=== PATIENT | female | born 1960 | race Caucasian/White ===

== ENCOUNTER → 2018-12-22 10:38 | Outpatient (CLI) | payer OTHER, SELFPAY ==
--- NOTE | 2018-12-22 10:40 | US_ITS ---
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 Left ovary measures 2 x 2 cm and has an unremarkable appearance. Right ovary has been removed. No cul-de-sac fluid apparent. IMPRESSION: Prior hysterectomy and right oophorectomy, no acute finding Dictated by: Yoav Thomas MD 12/22/2018 14:34 Electronically signed by Yoav Thomas MD in [facility] 12/22/2018 14:34
== END ==
PROVIDERS: PCP Internal Medicine Adolescent Medicine; Visit Provider Nurse Practitioner Obstetrics & Gynecology
DX: R10.2 Pelvic and perineal pain (principal)
CPT/HCPCS: 76830

== ENCOUNTER → 2019-01-14 09:54 | Outpatient (CLI) | payer BC, SELFPAY ==
--- NOTE | 2019-01-14 09:58 | MM_ITS ---
PROCEDURE: MM DIG SCREENING MAMM BI W/CAD CLINICAL INDICATION: Routine Screening Mammogram There is no personal or family history of breast cancer COMPARISON: DIGMAMMS MAMMOGRAM SCREEN-ROOFER GYPSUM N/C from 05/09/2008 DMSB DIGITAL MAMM-SCREEN BILATERAL from 02/18/2010 DMSB DIGITAL MAMM-SCREEN BILATERAL from 08/12/2011 TECHNIQUE: Standard CC and MLO images were obtained. R2 CAD reviewed. FINDINGS: Moderate somewhat heterogenic fibroglandular densities are seen in the central portions of both breasts. There is new dominant nodular densities in both breasts which are likely cysts but recommend follow-up ultrasound for additional evaluation. In addition there is increased glandular tissue in the outer quadrant of the left breast best appreciated on the CC view. In addition to ultrasound I would recommend the patient have spot compression views of the deep central portions of both breasts for better evaluation. IMPRESSION: Moderate heterogenic breast density with new nodular lesions in both breast and increased asymmetric glandular tissue outer quadrant left breast BI-RAD Category: 0 Need Additional Imaging Evaluation FOLLOW-UP: IMM Immediate Follow-up Recommended (A letter has been sent to the patient regarding results of the study.) Dictated by: Dr. Rome Luna MD 01/16/2019 10:[address] Rome Luna MD in [facility] 01/16/2019 10:20
== END ==
PROVIDERS: PCP Internal Medicine Adolescent Medicine; Visit Provider Nurse Practitioner Obstetrics & Gynecology
DX: Z12.31 Encounter for screening mammogram for malignant neoplasm of breast (principal)
CPT/HCPCS: 77067

== ENCOUNTER → 2019-02-08 12:36 | Outpatient (CLI) | payer BC, SELFPAY ==
--- NOTE | 2019-02-08 12:36 | US_ITS ---
PROCEDURE: MM DIG MAMM BI DX W/CAD CLINICAL INDICATION: Dx Mamm Bilateral- Abnormal Mammogram COMPARISON: DMSB DIGITAL MAMM-SCREEN BILATERAL from 02/18/2010 DMSB DIGITAL MAMM-SCREEN BILATERAL from 08/12/2011 MM DIG SCREENING MAMM BI W/CAD from 01/14/2019 US BREAST LT COMPLETE from 02/08/2019 US BREAST RT COMPLETE from 02/08/2019 TECHNIQUE: Bilateral spot compression views along with bilateral breast ultrasound FINDINGS: Average fibroglandular tissue. Right breast: New nodule 18 x 14 mm in the central aspect of the right breast once again confirm by spot compression central asymmetric density is also noted at approximately 10 mm. This is felt to be superior view. Other a areas of asymmetric density probably related to fibroglandular tissue. Right breast ultrasound: 17 x 6 mm by 14 mm cyst is present at 12 o'clock corresponding to the nodule noted on the mammogram. In addition, there is a 7 mm cyst at 10 o'clock which may correspond to additional area of asymmetric density Left mammogram: 2 cm opacity is noted in the mid aspect of the left breast which is not well circumscribed mammographically in the deep medial aspect of the left breast. There are additional nodular opacities also noted 1 centrally at 12 mm with an additional area at 13 mm. Left breast ultrasound: Multiple cysts are present including a 4 mm cyst at 12 o'clock, 6 mm cyst at 3 o'clock, 22 x 20 x 9 mm cyst at 10 o'clock. 8 mm cyst at 10 o'clock. No solid lesions evident. IMPRESSION: Bilateral breast nodules are present and are felt to most correspond to a cyst on the ultrasound. Six-month mammographic and sonographic follow-up recommended BI-RAD Category: 3 Probably Benign Finding Short Term Follow-up FOLLOW-UP: 6M 6Month Follow-up (A letter has been sent to the patient regarding results of the study.) Dictated by: Yoav Thomas MD 02/10/2019 12:58 Electronically signed by Yoav Thomas MD in [facility] 02/10/2019 12:58
== END ==
PROVIDERS: PCP Internal Medicine Adolescent Medicine; Visit Provider Nurse Practitioner Obstetrics & Gynecology
DX: R92.8 Other abnormal and inconclusive findings on diagnostic imaging of breast (principal)
CPT/HCPCS: 76641; 77066

== ENCOUNTER → 2019-08-05 13:12 | Outpatient (CLI) | payer BC, SELFPAY ==
[2019-08-05 13:44] LABS: Basophils # 0.1 K/mm3 (0-0.2); Basophils % 0.8 % (0.1-2.0); Eosinophils # 0.2 K/mm3 (0.0-0.4); Eosinophils % 1.9 % (0.1-12.0); Hematocrit 45.8 % (37.0-47.0); Lymphocytes # 2.9 K/mm3 (0.7-4.5); Mean Corpuscular HGB Conc 34.9 g/dL (31.8-35.4); Mean Corpuscular Hemoglobin 31.9 pg (27.0-31.2); Mean Corpuscular Volume 91.4 fl (81-99); Mean Platelet Volume 8.8 fl (7.4-10.4); Monocytes # 0.5 K/mm3 (0.1-1.0); Monocytes % 4.6 % (1.7-9.3); Neutrophils # 7.2 K/mm3 (1.8-7.8); Neutrophils % 65.8 % (37.0-80.0); Platelet Count 166 K/mm3 (142-424); Red Blood Count 5.01 M/mm3 (4.20-5.40); Red Cell Distribution Width 13.2 % (11.5-17.5); White Blood Count 10.9 K/mm3 (4.8-10.8)
[2019-08-05 14:41] LABS: Hemoglobin A1C 9.6 % (4.0-6.0)
[2019-08-05 14:56] LABS: Alanine Aminotransferase 66 U/L (12-78); Albumin Level 4.4 g/dl (3.5-5.0); Albumin/Globulin Ratio 1.5 (1.1-1.8); Alkaline Phosphatase 165 U/L (38-126); Anion Gap 13.1 mEq/L (5-15); Aspartate Amino Transferase 61 U/L (14-36); Bilirubin,Total 0.7 mg/dl (0.2-1.3); Blood Urea Nitrogen 19 mg/dl (7-17); Calcium 10.4 mg/dl (8.4-10.2); Carbon Dioxide 31 mmol/L (22.0-30.0); Chloride 98 mmol/L (98-107); Chol/HDL Ratio 4.1 (1-3.5); Cholesterol 228 mg/dl (140-200); Estimated Glomerular Filt Rate 57 ml/min (>60); GFR (African American) 69 ML/MIN (>60); Glucose 290 mg/dl (74-100); HDL Cholesterol 56 mg/dl (40-60); Potassium 4.1 mmoL/L (3.5-5.1); Sodium 138 mmol/L (136-145); Total Protein,Serum 7.4 g/dl (6.3-8.2); Triglycerides 334 mg/dl (30-150); VLDL Cholesterol 67 mg/dL (0-40)
[2019-08-05 15:07] LABS: Direct LDL Cholesterol 146.58 mg/dL (100-129)
== END ==
PROVIDERS: Visit Provider Internal Medicine Adolescent Medicine
DX: I16.0 Hypertensive urgency (principal); R73.09 Other abnormal glucose
CPT/HCPCS: 36415; 80053; 80061; 83036; 85025

== ENCOUNTER → 2019-08-12 07:38 | Outpatient (CLI) | payer BC, SELFPAY ==
--- NOTE | 2019-08-12 | CA_ITS ---
APPROVED REPORT Telecom Analyst: Tatyana Dumont RVT Study Quality: Good Indications: Uncontrolled HTN Risk Factors Hypertension Hyperlipidemia Diabetes Renal Artery Doppler Proximal (R) 63.6/ cm/sec Mid (R) 72.1/ cm/sec Distal (R) 58.2/ cm/sec Renal Aorta Ratio (R) 0.83 Segmental A. (R) 60.1/18.2 cm/sec RI: 0.69 Segmental A. Sup (R) 51.5/21.5 cm/sec Segmental A. Mid (R) 51.5/18.2 cm/sec Segmental A. Inf (R) 60.1/18.2 cm/sec Proximal (L) 93.7/ cm/sec Mid (L) 72.6/ cm/sec Distal (L) 54.3/ cm/sec Renal Aorta Ratio (L) 1.08 Segmental A. (L) 46.1/15.1 cm/sec RI: 0.67 Segmental A. Sup (L) 46.1/15.1 cm/sec Segmental A. Mid (L) 31.0/13.1 cm/sec Segmental A. Inf (L) 26.8/6.9 cm/sec Renal Measurements Kidney Size (R) 11.5x6.4 cm Cortical Thickness (R) 1.4 cm Kidney Size (L) 12.7x8.1 cm Cortical Thickness (L) 2.0 cm Findings Study suggests no evidence of bilateral renal artery stenosis. Conclusion Study suggests no evidence of bilateral renal artery stenosis. Electronically signed by : Yoav Thomas MD 08/12/2019 17:05:25
== END ==
PROVIDERS: PCP Internal Medicine Adolescent Medicine; Visit Provider Internal Medicine Adolescent Medicine
DX: I10 Essential (primary) hypertension (principal)
CPT/HCPCS: 93306; 93976

== ENCOUNTER → 2019-08-29 10:57 | Outpatient (CLI) | payer BC, SELFPAY ==
--- NOTE | 2019-08-29 11:14 | XR_ITS ---
PROCEDURE: XR CERVICAL SPINE 5V CLINICAL INDICATION: CERVICAL NECK PAIN W/ EVIDENCE OF DISC DISEASE Right arm numbness and tingling COMPARISON: No exams were available for comparison FINDINGS: Normal alignment. Degenerative disc disease is present from C2-T1 worse at C5-C6 and C6-C7. There is mild foraminal narrowing on the right at C5-C6 and on the left at C3-C4 C5-C6 and C6-C7. Facet hypertrophic/arthritic changes are present from C3-C7. No fracture or dislocation. No lytic or blastic change IMPRESSION: Cervical spondylosis as described above Dictated by: Yoav Thomas MD 08/29/2019 12:30 Electronically signed by Yoav Thomas MD in [facility] 08/29/2019 12:30
== END ==
PROVIDERS: PCP Internal Medicine Adolescent Medicine; Visit Provider Internal Medicine Adolescent Medicine
DX: M50.90 Cervical disc disorder, unspecified, unspecified cervical region (principal)
CPT/HCPCS: 72050

== ENCOUNTER 2019-10-20 16:00 | Outpatient (RCR) | payer BC, SELFPAY ==
--- NOTE | 2019-09-19 15:29 | HMH.PTOPEV ---
PT Outpatient Evaluation Rehab PT Outpatient Evaluation Start: 09/19/19 14:15 Freq: Status: Active Protocol: Document 09/19/19 15:15 PHOBRIAN (Rec: 09/19/19 15:29 PHORNE [id number]) Electronically Signed By Fran Caal, PT 09/19/19 15:15 Outpatient Therapy Subjective History Subjective History Pt is 59 yowf who presents with 1-2 mo hx of R side neclk pain, R UE numbness, and R hand weakness. She reports insidious onset of symptoms. She reports difficulty holding or lifting objects with the R hand, I dropped a plate of food the other night. She reports hx of DM-II with neuropathy, HTN, HL, mitral valve prolapse, OA, severe fx of R forearm bones with ORIF ~ 25 yrs ago. Chief Complaint Pain,Spasms,Gives out/Unstable ,Weakness,Decreased Tableau Report Developer Strength Symptom Type Ache,Sharp,Numbness Symptoms Aggravated By Physical Activity Prior Functional Limitations None Current Functional Limitations Lifting,Housework,Recreation Activity Symptom Description Constant but Variable Level of pain today (0-10) 7 Pain scale - at its worst (0-10) 10 Cervical Eval Palpation Cervical Muscles R Cervical Paraspinal,R Upper Trapezius Cervical/Thoracic Palpation Findings Tenderness,Spasm Flexibility Deficits Upper Trapezius Muscle Length (L) Mild Tightness,(R) Moderate Tightness Levaetor Scapulae Muscle Length (L) Mild Tightness,(R) Moderate Tightness Scalene Group Muscle Length (L) Mild Tightness,(R) Moderate Tightness Passive Joint Mobility Cervical PIVM Dec: R C2/3 L C2/3 R C3/4 L C3/4 R C4/5 L C4/5 R C5/6 L C5/6 R C6/7 L C6/7 R C7/T1 L C7/T1 WNL: R OA L OA R AA L AA ISIS
== END 2019-10-20 16:37 | disposition home or self-care (01) ==
LOC: PT 16:00
PROVIDERS: PCP Internal Medicine Adolescent Medicine; Visit Provider Internal Medicine Adolescent Medicine
DX: M50.90 Cervical disc disorder, unspecified, unspecified cervical region (principal)
CPT/HCPCS: 97010; 97012; 97014; 97035; 97110; 97140; 97163; G0283

== ENCOUNTER 2019-10-28 15:15 | Emergency (ER) | payer BC, SELFPAY ==
[2019-10-28 15:16] VITALS: BP 192/118; PULSE 106; RESP 18; TEMP 36.8; O2SAT 100; BMI 35.5
--- NOTE | 2019-10-28 15:30 | HMH.EDGENADL ---
ED Disposition Clinical Impression: PRES (posterior reversible encephalopathy syndrome), Malignant hypertension, Hyperglycemia Disposition: Xfer Short-Term Hosp Condition on Discharge: Fair Referrals: Kevin Edwards MD [Primary Care Provider] - - Critical Care Critical Care Time: Yes Attestation: On 10/28/19, the high probability of a clinically significant, sudden or life threatening deterioration of the following system(s) required my full and direct attention, intervention and personal management. The time I documented below is in addition to time spent performing reported procedures but includes the following listed in this critical care notation. Total Critical Care Time: 30 Vital system(s) involved:: Central Nervous System, Metabolic Failure My critical care processes included: Assessment & monitoring of V/S, Initial and Re-exams, Data Review/Interpretation, Coordinating Care, Medication Orders and management Medical Decision Making - Medical Records Medical records reviewed: Yes: I reviewed the patient's medical records. - Brandan Inquiry Pt receiving controlled substance: No Vital Signs: 10/28/19 15:16 Temperature 98.3 F Temperature Source Oral Pulse Rate [Left Radial] 106 H Respiratory Rate 18 Blood Pressure [Right Arm] 192/118 H Blood Pressure Mean [Right Arm] 142 Blood Pressure Source [Right Arm] Automatic Cuff Blood Pressure Position [Right Arm] Sitting 02 Sat by Pulse Oximetry 100 Oxygen Delivery Method Room Air - Lab Data Lab results reviewed: Yes: I reviewed the patient's lab results. Lab Results 10/28/19 15:30: WBC 8.5, RBC 4.97, Hgb 16.0, Hct 45.1, MCV 90.8, MCH 32.2 H, MCHC 35.4, RDW 13.2, Plt Count 170, MPV 9.0, Neut % (Auto) 64.5, Lymph % (Auto) 23.7, Meigs % (Auto) 8.1, Eos % (Auto) 2.9, Baso % (Auto) 0.8, Neut # (Auto) 5.5, Lymph # (Auto) 2.0, Meigs # (Auto) 0.7, Eos # (Auto) 0.3, Baso # (Auto) 0.1 10/28/19 15:30: Sodium 139, Potassium 3.9, Chloride 105, Carbon Dioxide 21 L, Anion Gap 16.9 H, BUN 23 H, Creatinine 1.00, Estimated Creat Clear 91, Estimated GFR 57 L, Est GFR ( Amer) 69, Glucose 275 H, Calcium 10.2, Total Bilirubin 0.5, AST 89 H, ALT 118 H, Alkaline Phosphatase 117, Total Protein 7.5, Albumin 4.1, Globulin 3.4 H, Albumin/Globulin Ratio 1.2 10/28/19 17:10: Lactate 2.1 Result diagrams: 10/28/19 15:30 10/28/19 15:30 Orders (Tests/Meds): ED MEDICATIONS Generic Name Dose Route Start Last Admin Trade Name Freq PRN Reason Stop Dose Admin Sodium Chloride 1,000 mls @ 999 mls/hr 10/28/19 16:45 10/28/19 16:44 Sod Chlor 0.9% 1000ml Bag IV 10/28/19 17:45 999 mls/hr .Q1H1M RICHAR Administration Nitroglycerin 0.4 mg 10/28/19 17:13 10/28/19 17:15 Nitrostat 0.4mg Sl Tablet SL 11/27/19 17:12 0.4 mg Q5MINP PRN Administration Chest Pain Discontinued Medications Generic Name Dose Route Start Last Admin Trade Name Freq PRN Reason Stop Dose Admin Hydralazine HCl 10 mg 10/28/19 15:39 10/28/19 15:54 Apresoline 20mg/Ml 1ml Vial IV 10/28/19 15:40 10 mg ONCE ONE Administration Hydralazine HCl 10 mg 10/28/19 16:59 10/28/19 17:10 Apresoline 20mg/Ml 1ml Vial IV 10/28/19 17:00 10 mg ONCE ONE Administration Ioversol 100 ml 10/28/19 16:23 10/28/19 16:24 Rad-Optiray 350 100ml Vial IV 10/28/19 16:24 100 ml ONCE ONE Administration Protocol Ioversol 70 ml 10/28/19 16:24 10/28/19 16:24 Rad-Optiray 350 100ml Vial IV 10/28/19 16:25 70 ml ONCE ONE Administration Protocol Ondansetron HCl 4 mg 10/28/19 16:44 10/28/19 16:50 Zofran 4mg/2ml Vial IV 10/28/19 16:45 4 mg ONCE ONE Administration Sodium Chloride 50 ml 10/28/19 16:23 10/28/19 16:24 Rad-Ns 50ml Vial IV 10/28/19 16:24 50 ml ONCE ONE Administration Sodium Chloride 10 ml 10/28/19 16:23 10/28/19 16:24 Rad-Saline Flush 10ml Syringe IV 10/28/19 16:24 10 ml ONCE ONE Administration ORDERS Category Date Time Status CT ab
--- NOTE | 2019-10-28 15:39 | CT_ITS ---
PROCEDURE: CT ABDOMEN PELVIS W CON CLINICAL INDICATION: dizziness Hypertension and dizziness COMPARISON: CR KUB KUB (SINGLE VIEW) from 05/27/2016 CR LS5 LUMBAR SPINE 5 VIEWS from 05/27/2016 TECHNIQUE: IV Contrast: 75ML OPTIRAY 350 Oral Contrast None Axial images obtained with sagittal and coronal reformats. All CT scans at the facility use one or more dose reduction, viz: automated exposure control, ma/kV adjustment per patient size (including targeted exams where dose is matched to indication, i.e. head), or iterative reconstruction technique. FINDINGS: There has been a prior cholecystectomy. Mild fatty liver infiltration. Small hiatal hernia. There is mild biliary ectasia which could be response to the previous cholecystectomy. There is some heterogeneous density of the spleen possibly due to flow phenomenon. Follow-up may confirm. The adrenal glands and pancreas and kidneys have an unremarkable appearance. No intestinal obstruction or free air. No evidence of appendicitis. There is a mild amount of retained colonic feces in the rectosigmoid region. There has been a prior hysterectomy. No pelvic mass or abnormal fluid collection. There are degenerative changes of the lumbar spine with mild chronic wedging L2 with mild kyphosis at L1-L2. There is a defect within the right ilium laterally fairly well-circumscribed etiology indeterminate. Stability may be confirmed with follow-up. IMPRESSION: 1. No acute finding. 2. Small hiatal hernia. 3. Other nonacute findings as described above Dictated by: Yoav Thomas MD 10/29/2019 08:22 Yoav Thomas MD in [facility] 10/29/2019 08:22
--- NOTE | 2019-10-28 15:39 | CT_ITS ---
PROCEDURE: CT HEAD/BRAIN WO CON CLINICAL INDICATION: dizziness COMPARISON: CT HDWO CT HEAD W/O CONTRAST from 05/15/2013 TECHNIQUE: Axial images obtained. All CT scans at the facility use one or more dose reduction, viz: automated exposure control, ma/kV adjustment per patient size (including targeted exams where dose is matched to indication, i.e. head), or iterative reconstruction technique. FINDINGS: No midline shift or mass effect. No acute intracranial hemorrhage. Periventricular and subcortical low attenuating white matter changes are present most pronounced in the bilateral parietal lobes and parietal occipital junction. There is contour deformity of the lateral wall the right maxillary sinus suggesting an old fracture. There is sinus wall thickening with calcification within the sinus which may be due to chronic infection. Bilateral mucosal thickening noted of the maxillary sinuses and ethmoid sinuses. Mild mucosal thickening of the frontal sinuses inferiorly. No mastoid effusion. IMPRESSION: 1. Periventricular and subcortical low-attenuation white matter changes most pronounced in the parietal lobes nonspecific and could reflect sequela of chronic small vessel ischemic changes. Posterior reversible encephalopathy syndrome is included in the differential diagnosis in the appropriate clinical setting. 2. Sinus disease Dictated by: Yoav Thomas MD 10/29/2019 07:57 Yoav Thomas MD in [facility] 10/29/2019 07:57
--- NOTE | 2019-10-28 15:39 | CT_ITS ---
PROCEDURE: CT ANGIO CHEST CLINCIAL INDICATION: Shortness of breath COMPARISON: No exams were available for comparison TECHNIQUE: IV Contrast: 70ML OPTIRAY 350 Axial images obtained with sagittal and coronal reformats. All CT scans at the facility use one or more dose reduction, viz: automated exposure control, ma/kV adjustment per patient size (including targeted exams where dose is matched to indication, i.e. head), or iterative reconstruction technique. FINDINGS: HEART AND MEDIASTINAL STRUCTURES: No evidence of pulmonary embolus or aortic aneurysm or dissection.. No mediastinal or hilar mass or adenopathy. There are few small hilar lymph nodes LUNGS AND PLEURAL SPACES: There is a 1.4 cm ground-glass nodule within the left upper lobe. A 0.6 cm ground-glass nodules present in the right upper lobe. Focal ground-glass opacity noted in the left lower lobe anteriorly at 0.9 cm. There are a few calcified granulomas. No effusions are apparent. BONY STRUCTURES: No acute bony abnormalities apparent. UPPER ABDOMEN: Fatty liver ADDITIONAL FINDINGS: There is a 2 cm nodule in the medial aspect of the left breast. A nodule was reported in this area on a previous mammogram of 02/08/2019. Please see that report. Six-month follow-up was recommended at that time IMPRESSION: 1. There are at least 3 ground-glass nodules the largest in the left upper lobe at 1.4 cm. Suggest follow-up exam in 3 months. 2. No evidence of pulmonary embolus 3. 2 cm left breast nodule. Suggest mammographic and sonographic follow-up. Please see prior mammogram report for further details Dictated by: Yoav Thomas MD 10/29/2019 08:17 Yoav Thomas MD in [facility] 10/29/2019 08:17
--- NOTE | 2019-10-28 15:42 | CT_ITS ---
Procedure: CT ANGIO NECK CLINICAL HISTORY: hypertension, dizziness and giddiness Dizziness, blurred vision, hypertension COMPARISON: CT CT ANGIO HEAD from 10/28/2019 TECHNIQUE: IV Contrast: 100ml Optiray 350 Axial images obtained with sagittal and coronal reformats. All CT scans at the facility use one or more dose reduction, viz: automated exposure control, ma/kV adjustment per patient size (including targeted exams where dose is matched to indication, i.e. head), or iterative reconstruction technique. FINDINGS: CTA neck: The aortic arch and great vessels have an unremarkable appearance. The no stenosis or occlusive change. Mild intimal thickening in the carotid bulbs on both sides. No ulcerations. No aneurysm or dissection. 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 Left vertebral artery is dominant. There are multiple bilateral thyroid nodules. The thyroid gland has a nodular contour. Scattered small cervical lymph nodes are present. There is bilateral maxillary sinus disease with calcification in the right maxillary sinus which could be due to old trauma or chronic sinus infection. There is an old fracture of the lateral wall of the right maxillary sinus. Mucosal thickening also is present in the sphenoid ethmoid and frontal sinuses. CTA brain: No aneurysm, arteriovenous malformation, or major intracranial occlusive process is evident. 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 No enhancing lesions are evident. No evidence of sinus thrombosis. There is hypoplasia of the left transverse sinus IMPRESSION: 1. No extracranial carotid or vertebral stenosis or dissection. 2. No intracranial carotid or vertebral stenosis. 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 3. Pansinusitis with old fracture of the right maxillary sinus lateral wall Dictated by: Yoav Thomas MD 10/29/2019 08:08 Yoav Thomas MD in [facility] 10/29/2019 08:08
[2019-10-28 15:47] LABS: Basophils # 0.1 K/mm3 (0-0.2); Basophils % 0.8 % (0.1-2.0); Eosinophils # 0.3 K/mm3 (0.0-0.4); Eosinophils % 2.9 % (0.1-12.0); Hematocrit 45.1 % (37.0-47.0); Lymphocytes % 23.7 % (10-50); Mean Corpuscular HGB Conc 35.4 g/dL (31.8-35.4); Mean Corpuscular Hemoglobin 32.2 pg (27.0-31.2); Mean Corpuscular Volume 90.8 fl (81-99); Monocytes # 0.7 K/mm3 (0.1-1.0); Monocytes % 8.1 % (1.7-9.3); Neutrophils # 5.5 K/mm3 (1.8-7.8); Neutrophils % 64.5 % (37.0-80.0); Platelet Count 170 K/mm3 (142-424); Red Blood Count 4.97 M/mm3 (4.20-5.40); Red Cell Distribution Width 13.2 % (11.5-17.5); White Blood Count 8.5 K/mm3 (4.8-10.8)
--- NOTE | 2019-10-28 15:48 | ECG_ITS ---
APPROVED REPORT Exam: Resting ECG HR:100 bpm ECG Measurements Heart Rate 100 AXES SD 158 P 38 QRSd 84 QRS 18 QT 330 T 10 QTc 425 <Conclusion> Normal sinus rhythm Possible Left atrial enlargement Left ventricular hypertrophy Nonspecific T wave abnormality Abnormal ECG Electronically signed by : Israel Abbott, 10/29/2019 10:00:17
[2019-10-28 15:51] LABS: Chloride 105 mmol/L (98-107); Potassium 3.9 mmoL/L (3.5-5.1); Sodium 139 mmol/L (136-145)
[2019-10-28 15:54] LABS: Alanine Aminotransferase 118 U/L (12-78); Albumin Level 4.1 g/dl (3.5-5.0); Alkaline Phosphatase 117 U/L (38-126); Anion Gap 16.9 mEq/L (5-15); Aspartate Amino Transferase 89 U/L (14-36); Bilirubin,Total 0.5 mg/dl (0.2-1.3); Blood Urea Nitrogen 23 mg/dl (7-17); Carbon Dioxide 21 mmol/L (22.0-30.0); Creatinine Clearance Estimated 91 mL/min (50-200); Estimated Glomerular Filt Rate 57 ml/min (>60); GFR (African American) 69 ML/MIN (>60)
[2019-10-28 15:55] LABS: Albumin/Globulin Ratio 1.2 (1.1-1.8); Calcium 10.2 mg/dl (8.4-10.2); Globulin 3.4 g/dL (1.3-3.2); Glucose 275 mg/dl (74-100); Total Protein,Serum 7.5 g/dl (6.3-8.2)
--- NOTE | 2019-10-28 16:28 | PC.NURSE ---
Left eye 20/100, right eye 20/70
[2019-10-28 17:34] LABS: Lactic Acid 2.1 mmol/L (0.7-2.1)
--- NOTE | 2019-10-28 17:55 | PC.NURSE ---
Contacting [facility]
[2019-10-28 18:14] VITALS: BP 215/160; PULSE 110; O2SAT 96
--- NOTE | 2019-10-28 18:24 | PC.NURSE ---
Report called to Mario at [facility].
[2019-10-28 18:30] VITALS: BP 184/98; PULSE 107
[2019-10-28 19:09] VITALS: BP 184/98; PULSE 109; RESP 19; TEMP 36.8; O2SAT 100
[2019-10-28 21:13] LABS: Reflex Lactic Add Lactic Reflex
== END 2019-10-28 19:11 | disposition short-term general hospital (02) ==
PROVIDERS: Emergency Provider Physician Assistant; PCP Internal Medicine Adolescent Medicine
DX: I67.83 Posterior reversible encephalopathy syndrome (principal); I16.0 Hypertensive urgency; E11.65 Type 2 diabetes mellitus with hyperglycemia; Z79.84 Long term (current) use of oral hypoglycemic drugs; J45.909 Unspecified asthma, uncomplicated; Z79.899 Other long term (current) drug therapy
CPT/HCPCS: 36415; 70450; 70496; 70498; 71275; 74177; 80053; 83605; 85025; 93005; 96365; 96367; 96375; 96376; 99284; J2405; Q9967

== ENCOUNTER → 2020-01-10 14:30 | Outpatient (CLI) | payer BC, SELFPAY ==
--- NOTE | 2020-01-10 14:35 | US_ITS ---
PROCEDURE: MM DIG MAMM BI DX W/CAD Digital Breast Tomosynthesis Included CLINICAL INDICATION: ABN MAMM Follow-up mammogram the COMPARISON: MG DMSB DIGITAL MAMM-SCREEN BILATERAL from 02/18/2010 MG DMSB DIGITAL MAMM-SCREEN BILATERAL from 08/12/2011 MG MM DIG SCREENING MAMM BI W/CAD from 01/14/2019 MG MM DIG MAMM BI DX W/CAD from 02/08/2019 US US BREAST RT COMPLETE from 02/08/2019 US US BREAST LT COMPLETE from 02/08/2019 US US BREAST RT COMPLETE from 01/10/2020 US US BREAST LT COMPLETE from 01/10/2020 TECHNIQUE: Standard CC and MLO images and 3D Tomosynthesis was obtained. R2 CAD reviewed. Bilateral breast ultrasound. FINDINGS: The exam is somewhat limited technically due to patient's inability to be position due to the fact she has had recent stroke.. Right breast: There is some asymmetric density in the superior aspect of the right breast which is somewhat similar to 01/14/2019. This may be due to overlapping fibroglandular tissue as noted on the balta images. There is some smudgy calcifications in the outer aspect of the right breast which are indeterminate. The previously there was a nodular lesion in the medial aspect of the right breast. That area is not able to be properly imaged on the mammogram due to inability to properly position the patient. The outer aspect of the right breast also is not well demonstrated on the mammogram. Right breast ultrasound: At 12 o'clock there is a hypoechoic nodule at 7 mm not readily demonstrated on the previous mammogram. This nodule is wider than tall and is somewhat ill-defined and could not be due to fibroglandular tissue. A 9 mm cyst is present at 1 o'clock. Previously this cyst measures 17 mm. There is a 6 mm cyst at 7 o'clock. At 9 o'clock there is a 7 x 5 mm hypoechoic nodule taller than wide with ill-defined margins. Ultrasound-guided FNA of this nodule is suggested. In the right axilla there is a palpable nodule at 11 mm consistent with a sebaceous cyst. Second-look was performed. At 10 o'clock there is a somewhat irregular nodule hypoechoic in nature with irregular margins at 10 by 8 mm. Ultrasound-guided biopsy suggested. Left breast: The limited evaluation due to inability to properly position patient. There is a 3 cm nodule in the deep medial aspect of the left breast with other benign-appearing nodules also present in the medial breast. Left breast ultrasound: Multiple small cyst along with a dominant cyst in the 10 o'clock region of the left breast measuring 2 cm corresponding to the mammographic abnormality. There is a an additional hypoechoic nodule at 10 o'clock at 10 mm not previously demonstrated with a protrusion of the nodule superiorly not significantly changed from the previous study. IMPRESSION: Abnormal mammogram and ultrasound. Multiple abnormalities are present. Evaluation is limited secondary to patient's inability to be properly position due to her recent stroke.. There are suspicious abnormalities on the right including a 7 mm nodule at 12 o'clock and a 7 x 5 mm hypoechoic nodule at 9 o'clock and a 10 x 8 mm nodule at 10 o'clock. Ultrasound-guided biopsies of these nodules are recommended. Also there is asymmetric density in the superior aspect of the right breast along some smudgy calcifications in the lateral right breast. Six-month follow-up suggested of these abnormalities. BI-RAD Category: 4 Suspicious Abnormality - Biopsy Considered FOLLOW-UP: BIO Biopsy Recommended (A letter has been sent to the patient regarding results of the study.) Dictated by: Yoav Thomas MD 01/13/2020 11:44 Yoav Thomas MD in [facility] 01/13/2020 11:44
== END ==
PROVIDERS: PCP Internal Medicine Adolescent Medicine; Visit Provider Internal Medicine Adolescent Medicine
DX: R92.8 Other abnormal and inconclusive findings on diagnostic imaging of breast (principal)
CPT/HCPCS: 76641; 77062; 77066; G0279

== ENCOUNTER → 2020-01-31 09:52 | Outpatient (CLI) | payer BC, SELFPAY ==
[2020-01-31 10:47] LABS: Chloride 104 mmol/L (98-107); Sodium 142 mmol/L (136-145)
[2020-01-31 10:48] LABS: Potassium 4.6 mmoL/L (3.5-5.1)
[2020-01-31 10:50] LABS: Alanine Aminotransferase 28 U/L (12-78); Albumin Level 4.5 g/dl (3.5-5.0); Albumin/Globulin Ratio 1.6 (1.1-1.8); Alkaline Phosphatase 116 U/L (38-126); Anion Gap 15.6 mEq/L (5-15); Aspartate Amino Transferase 24 U/L (14-36); Bilirubin,Total 0.6 mg/dl (0.2-1.3); Blood Urea Nitrogen 18 mg/dl (7-17); Calcium 10.2 mg/dl (8.4-10.2); Carbon Dioxide 27 mmol/L (22.0-30.0); Cholesterol 143 mg/dl (140-200); Estimated Glomerular Filt Rate 64 ml/min (>60); GFR (African American) 78 ML/MIN (>60); Globulin 2.8 g/dL (1.3-3.2); Glucose 122 mg/dl (74-100); Total Protein,Serum 7.3 g/dl (6.3-8.2); Triglycerides 194 mg/dl (30-150); VLDL Cholesterol 39 mg/dL (0-40)
[2020-01-31 10:51] LABS: Chol/HDL Ratio 3.4 (1-3.5); HDL Cholesterol 42 mg/dl (40-60)
[2020-01-31 11:02] LABS: Direct LDL Cholesterol 74.41 mg/dL (100-129)
[2020-01-31 11:58] LABS: Hemoglobin A1C 5.6 % (4.0-6.0)
== END ==
PROVIDERS: PCP Internal Medicine Adolescent Medicine; Visit Provider Surgery
DX: N63.15 Unspecified lump in the right breast, overlapping quadrants (principal); N63.21 Unspecified lump in the left breast, upper outer quadrant; I63.9 Cerebral infarction, unspecified; E11.9 Type 2 diabetes mellitus without complications; I10 Essential (primary) hypertension; Z79.84 Long term (current) use of oral hypoglycemic drugs
CPT/HCPCS: 19083; 19084; 36415; 80053; 80061; 83036

== ENCOUNTER 2020-03-01 09:49 | Outpatient (RCR) | payer BC, SELFPAY | END 2020-03-01 11:00 | disposition home or self-care (01) | LOC: PT 09:49 | PROVIDERS: Visit Provider Internal Medicine Adolescent Medicine | DX: I63.9 Cerebral infarction, unspecified (principal); M15.0 Primary generalized (osteo)arthritis; M50.90 Cervical disc disorder, unspecified, unspecified cervical region | CPT/HCPCS: 97542 ==

== ENCOUNTER → 2020-04-24 13:47 | Outpatient (CLI) | payer BC, SELFPAY ==
[2020-04-24 14:50] LABS: Basophils # 0.1 K/mm3 (0-0.2); Basophils % 0.6 % (0.1-2.0); Eosinophils # 0.3 K/mm3 (0.0-0.4); Eosinophils % 2.5 % (0.1-12.0); Hematocrit 41.8 % (37.0-47.0); Hemoglobin 14.1 g/dL (12.2-16.2); Lymphocytes # 2.8 K/mm3 (0.7-4.5); Lymphocytes % 24.6 % (10-50); Mean Corpuscular HGB Conc 33.6 g/dL (31.8-35.4); Mean Corpuscular Volume 89.1 fl (81-99); Mean Platelet Volume 8.6 fl (7.4-10.4); Monocytes # 0.6 K/mm3 (0.1-1.0); Monocytes % 5.2 % (1.7-9.3); Neutrophils # 7.5 K/mm3 (1.8-7.8); Neutrophils % 67.1 % (37.0-80.0); Platelet Count 239 K/mm3 (142-424); Red Blood Count 4.69 M/mm3 (4.20-5.40); Red Cell Distribution Width 13.4 % (11.5-17.5); White Blood Count 11.2 K/mm3 (4.8-10.8)
[2020-04-24 15:46] LABS: Chloride 106 mmol/L (98-107); Potassium 4.3 mmoL/L (3.5-5.1); Sodium 140 mmol/L (136-145)
[2020-04-24 15:49] LABS: Alanine Aminotransferase 25 U/L (12-78); Albumin Level 4.2 g/dl (3.5-5.0); Albumin/Globulin Ratio 1.5 (1.1-1.8); Alkaline Phosphatase 87 U/L (38-126); Anion Gap 12.3 mEq/L (5-15); Aspartate Amino Transferase 24 U/L (14-36); Blood Urea Nitrogen 16 mg/dl (7-17); Carbon Dioxide 26 mmol/L (22.0-30.0); Estimated Glomerular Filt Rate 74 ml/min (>60); GFR (African American) 89 ML/MIN (>60); Globulin 2.8 g/dL (1.3-3.2)
[2020-04-24 15:50] LABS: Calcium 9.9 mg/dl (8.4-10.2); Glucose 84 mg/dl (74-100)
[2020-04-24 15:59] LABS: Hemoglobin A1C 5.1 % (4.0-6.0)
[2020-04-24 16:18] LABS: Thyroid Stimulating Hormone 1.09 uIU/mL (0.465-4.68)
== END ==
PROVIDERS: Visit Provider Internal Medicine Adolescent Medicine
DX: I10 Essential (primary) hypertension (principal); E11.9 Type 2 diabetes mellitus without complications; Z79.84 Long term (current) use of oral hypoglycemic drugs
CPT/HCPCS: 36415; 80053; 83036; 84443; 85025

== ENCOUNTER → 2020-08-21 16:57 | Outpatient (CLI) | payer MEDICAID, SELFPAY ==
[2020-08-21 17:45] LABS: Basophils # 0.1 K/mm3 (0-0.2); Basophils % 0.5 % (0.1-2.0); Eosinophils # 0.3 K/mm3 (0.0-0.4); Eosinophils % 2.9 % (0.1-12.0); Hematocrit 41.1 % (37.0-47.0); Hemoglobin 13.9 g/dL (12.2-16.2); Lymphocytes # 2.4 K/mm3 (0.7-4.5); Lymphocytes % 21.2 % (10-50); Mean Corpuscular HGB Conc 33.9 g/dL (31.8-35.4); Mean Corpuscular Volume 88.7 fl (81-99); Mean Platelet Volume 8.4 fl (7.4-10.4); Monocytes # 0.7 K/mm3 (0.1-1.0); Monocytes % 5.8 % (1.7-9.3); Neutrophils # 7.9 K/mm3 (1.8-7.8); Neutrophils % 69.5 % (37.0-80.0); Platelet Count 225 K/mm3 (142-424); Red Blood Count 4.63 M/mm3 (4.20-5.40); Red Cell Distribution Width 13.2 % (11.5-17.5); White Blood Count 11.4 K/mm3 (4.8-10.8)
[2020-08-21 19:14] LABS: Alanine Aminotransferase 19 U/L (12-78); Albumin/Globulin Ratio 1.5 (1.1-1.8); Alkaline Phosphatase 94 U/L (38-126); Anion Gap 12.4 mEq/L (5-15); Aspartate Amino Transferase 21 U/L (14-36); Bilirubin,Total 0.7 mg/dl (0.2-1.3); Blood Urea Nitrogen 21 mg/dl (7-17); Calcium 9.4 mg/dl (8.4-10.2); Carbon Dioxide 28 mmol/L (22.0-30.0); Chloride 106 mmol/L (98-107); Cholesterol 124 mg/dl (140-200); Estimated Glomerular Filt Rate 46 ml/min (>60); GFR (African American) 56 ML/MIN (>60); Globulin 2.6 g/dL (1.3-3.2); Glucose 80 mg/dl (74-100); HDL Cholesterol 41 mg/dl (40-60); Potassium 4.4 mmoL/L (3.5-5.1); Sodium 142 mmol/L (136-145); Total Protein,Serum 6.6 g/dl (6.3-8.2); Triglycerides 144 mg/dl (30-150); VLDL Cholesterol 29 mg/dL (0-40)
[2020-08-21 19:25] LABS: Direct LDL Cholesterol 60.79 mg/dL (100-129)
[2020-08-21 19:47] LABS: Thyroid Stimulating Hormone 0.91 uIU/mL (0.465-4.68)
[2020-08-21 20:05] LABS: Vitamin B12 376 pg/mL (239-931)
== END ==
PROVIDERS: Visit Provider Specialist
DX: I63.9 Cerebral infarction, unspecified (principal); Z79.899 Other long term (current) drug therapy; I10 Essential (primary) hypertension
CPT/HCPCS: 36415; 80053; 80061; 82607; 84443; 85025

== ENCOUNTER → 2020-08-24 12:45 | Outpatient (CLI) | payer MEDICAID, SELFPAY ==
--- NOTE | 2020-08-24 12:57 | MR_ITS ---
PROCEDURE INFORMATION: Exam: MR Head Without Contrast Exam date and time: 08/24/2020 12:57 PM Age: 60 years old Clinical indication: Pain; Headache; Additional info: CVA. Headache. HX stroke [id number] ago. Dizziness and blurred vision. Prior CT 10-28-19 TECHNIQUE: Imaging protocol: MR of the head without contrast. COMPARISON: CT HEAD/BRAIN WO CON 10/28/2019 4:16 PM FINDINGS: Confluent and focal areas of abnormal T2 prolongation within the periventricular and subcortical white matter of the supra and infratentorial brain without restricted diffusion. . Punctate susceptibility artifact in the RIGHT cerebellar hemisphere and LEFT paramedian bill without surrounding edema consistent with chronic microhemorrhage versus microcalcification. . Remainder of the brain parenchyma demonstrates normal signal intensity without an intra- or extra-axial mass or abnormality. No mass effect or midline shift. . Midline brain structures including the corpus callosum, pituitary gland, pineal region, and craniovertebral junction are unremarkable. Ventricles and sulci are mildly dilated without evidence of hydrocephalus. Intracranial vessels demonstrate a normal flow-void. 9 IMPRESSION: 1. Moderately advanced chronic microvascular ischemic disease and generalized age appropriate atrophy. 2. No evidence of acute/subacute hemorrhagic or ischemic infarct and no hydrocephalus.
== END ==
PROVIDERS: PCP Internal Medicine Adolescent Medicine; Visit Provider Specialist
DX: I63.9 Cerebral infarction, unspecified (principal)
CPT/HCPCS: 70551

== ENCOUNTER → 2020-09-12 09:08 | Outpatient (CLI) | payer MEDICAID, SELFPAY ==
--- NOTE | 2020-09-12 09:08 | FL_ITS ---
PROCEDURE: FL BARIUM SWALLOW MODIFIED CLINICAL INDICATION: cva COMPARISON: No exams were available for comparison TECHNIQUE: Patient administered varying consistencies of barium contrast, while viewed in lateral position under real-time fluoroscopy with cine recording. FLUOROSCOPY TIME:1 minutes and 45 seconds The study was performed in conjunction with speech pathologist. Please see that report & recommendations. FINDINGS: Patient was given varying consistencies of barium. No aspiration or penetration. There was some mild difficulty with bolus formation with mechanical soft.. IMPRESSION: Unremarkable modified barium swallow. Please see speech pathologist report and recommendations. Dictated by: Yoav Thomas MD 09/17/2020 09:37 Yoav Thoams MD in [place] 09/17/2020 09:37
--- NOTE | 2020-09-12 10:33 | HMH.SLMBS2 ---
Speech & Language Evaluation Speech/Language Mod Barium Swallow Start: 09/12/20 10:23 Freq: once Status: Complete Protocol: Document 09/12/20 10:23 ALVARADO (Rec: 09/12/20 10:33 ALVARADO [id number]) General Information General Current Food Consistancy Regular,Thin Liquids Dentition Lower Only Oxygen Status Room Air Facial Symmetry Asymmetrical Patient Orientation Person,Place,Time,Situation Ability to Follow Directions Excellent Communication Ability Mild Impairment MBS Recommendations Diet Dietary Recommendations Regular,Thin Liquids Treatment/Strategies Strategy/Precaution Recommend Sitting Upright (90 deg), Liquids from Straw,Small Bites and Sips,Alternate Liquids/ Solids Mod Barium Swallow Impressions Summary and Impressions Oral Phase Impression Mild Impairment Oral Phase Summary Ms. Rhoades does not have proper fitting top dentures which makes it difficult for her to chew foods. She does not masticate foods properly due to lack of dentition. Pharyngeal Phase Impression No Impairment (WFL) Pharyngeal Phase Summary No pharyngeal phase impairments noted. Speech/Language MBS Assessment/Goals/Plan Assessment Date of Evaluation: 09/12/20 Evaluation Type Initial Certification Assessment/Problems dysphagia Does Patient Qualify for Service No Qualify/Failure Comment Patient educated on mastication importance in the swallow process. Patient agreed to chew foods longer before swallowing. Recommendations PHYSICIAN CERTIFICATION: The specified therapy services are required, authorized, and reviewed every 30 days. Diet Recommendations Normal Liquid Type Recommendations Normal/Thin SL Swallow Guidelines Standard Aspiration Prec. Dysphagia Swallow Precautions/Strategies Sitting Upright (90 deg), Liquids from Straw,Small Bites and Sips,Alternate Liquids/ Solids Plan Pt/Guardian verbally ack understanding Yes of dx/prognosis/goals G -code Required No Mod Barium Swallow Setup Exam Setup Radiologist Tre Luna Level of Consciousness Awake,Alert,Appropriate, Follows Commands Position (degrees) 90 Mod Barium Swallow-Lat View Textures Lateral View Food Presentation Thin Liquid via Straw,Ground
== END ==
PROVIDERS: PCP Internal Medicine Adolescent Medicine; Visit Provider Specialist
DX: I63.9 Cerebral infarction, unspecified (principal)
CPT/HCPCS: 70371; 92611

== ENCOUNTER → 2020-09-28 12:57 | Outpatient (CLI) | payer MEDICAID, SELFPAY ==
--- NOTE | 2020-09-28 13:02 | CT_ITS ---
PROCEDURE: CT ABDOMEN PELVIS WO CON CLINICAL INDICATION: KIDNEY PAIN COMPARISON: CT CT ABDOMEN PELVIS W CON from 10/28/2019 TECHNIQUE: Axial images obtained with sagittal and coronal reformats. All CT scans at the facility use one or more dose reduction, viz: automated exposure control, ma/kV adjustment per patient size (including targeted exams where dose is matched to indication, i.e. head), or iterative reconstruction technique. FINDINGS: LOWER THORAX: No acute finding ABDOMEN & PELVIS: The liver has an unremarkable appearance. The most cephalad extent of the spleen is not imaged. The remaining spleen has an unremarkable appearance. There has been a prior cholecystectomy. The adrenal glands and pancreas appear unremarkable. No renal or ureteral calculi. No intestinal obstruction or free air. There is mild distention of the descending duodenum and proximal jejunum. Proximal common bile duct is slightly prominent at 12 mm but may be due to reservoir effect from the prior cholecystectomy not significantly changed. No obvious common duct stones. There is a mild amount of retained colonic feces. The appendix is not clearly delineated. No evidence of appendicitis. Post hysterectomy changes. No evidence of diverticulitis. There is redundancy of the sigmoid colon. Multiple unopacified bowel loops in the abdomen or pelvis which could obscure or mimic pathology. If symptoms persist, consider repeat exam with IV and oral contrast.. Degenerative changes are present in the lumbar spine. Small defect is present in the right ilium anteriorly unchanged and could be due to prior bone harvesting site. IMPRESSION: 1. No acute finding. 2. No renal or ureteral calculi. Dictated by: Yoav Thomas MD 09/28/2020 13:33 Yoav Thomas MD in [place] 09/28/2020 13:33
== END ==
PROVIDERS: PCP Internal Medicine Adolescent Medicine; Visit Provider Internal Medicine Adolescent Medicine
DX: N23 Unspecified renal colic (principal)
CPT/HCPCS: 74176

== ENCOUNTER 2020-10-10 14:00 | Outpatient (RCR) | payer BC, MEDICAID, SELFPAY ==
--- NOTE | 2020-03-05 14:57 | HMH.PTOPEV ---
PT Outpatient Evaluation Rehab PT Outpatient Evaluation Start: 03/05/20 13:45 Freq: Status: Active Protocol: Document 03/05/20 13:51 JULIANNECHARITO (Rec: 03/05/20 14:57 HERMILO [id number]) Electronically Signed By Humphrey Clark, MARITZA 03/05/20 13:51 Outpatient Therapy Subjective History Subjective History This is the initial outpatient Physical THerapy evaluation for Mary Rhoades. Pt is a 59 y/o female referred to PT s/p CVA w/ severe L side affect. Pt had CVA Oct ~ and was emergency admitted to [facility]. Pt stayed in ICU of until the 1st week of Nov, where she dc's to [facility]. Pt reports she was in [facility] until Dec 21. Pt reports she had home health from [facility] thru the last week of January 2020. Pt has full L side affect no active anterior muscle activation LLE or LUE. Pt reports she has chronic constant pain in LUE and LLE including c/o melanie horses in LLE. Chief Complaint Pain,Weakness Symptom Type Ache,Throb,Sharp,Numbness, Tingling Symptoms Relieved By Nothing Symptoms Aggravated By Physical Activity Prior Functional Limitations None Current Functional Limitations Lifting,Housework,Dressing, Desk Work/Reading,Sleeping, Standing,Recreation Activity, Walking,Balance,Bending/ Stooping Symptom Description Constant but Variable Pain scale - at its worst (0-10) 8 Shoulder/Elbow Eval Shoulder Objective Measurements Shoulder ROM Left Shoulder ROM Limitations Soft Tissue Tightness,Pain Shoulder Abduction Passive Range of 80 w/ pain Motion (degrees) Shoulder Flexion Passive Range of Motion 90 w/ pain (degrees) pain with passive ROM shoulder exam left standard decreased ROM shoulder exam standard left full ROM shoulder exam standard right Shoulder MMT Anterior Deltoid Strength Grade 0 Zero Shoulder Abduction Strength Grade 0 Zero Shoulder Flexion Strength Grade 0 Zero Shoulder External Rotation Strength 0 Zero Grade Shou
== END 2020-10-10 15:20 | disposition home or self-care (01) ==
LOC: PT 14:00
PROVIDERS: PCP Internal Medicine Adolescent Medicine; Visit Provider Internal Medicine Adolescent Medicine
DX: I63.9 Cerebral infarction, unspecified (principal)
CPT/HCPCS: 97014; 97110; 97112; 97116; 97140; 97163; 97164; 97530; G0283

== ENCOUNTER 2020-10-24 12:49 | Outpatient (RCR) | payer MEDICAID, SELFPAY ==
--- NOTE | 2020-10-24 15:11 | HMH.OTOPEV ---
OT Inpatient Evaluation Rehab OT Outpatient Eval Start: 10/24/20 14:42 Freq: Status: Active Protocol: Document 10/24/20 14:42 RMARSHALVictoriano (Rec: 10/24/20 15:11 [facility] [id number][facility] Electronically Signed By Julián Moreira OT 10/24/20 14:42 Outpatient Therapy Subjective History Subjective History Pt is a 60 year old female who reports to therapy for initial evaluation to L UE weakness. Pt originally had a CVA on 10/28/19; ~1 year ago. Following her stroke she attended [facility] for 3 weeks. She then had home health therapy for a while. After home health she started outpatient PT here at [facility]. She has been seeing PT for neuro rehab for months now. Her is her main caregiver and provides assistance at home. At this time, she is still unable to transfer from surface to surface; she requries mod/max assistance. She normally stays in wheelchair when she is out in the community and at home. reports she can walk with assistance and rolling walker, but only short distances. Her completes 75% of all dressing and bathing tasks. She can take her shirt off over her head independently, but unable to complete anything other dressing. When she is bathing , he makes her use the right arm to wash her upper body, but he completes the rest. At this time, she does not have any AE such as sock aid, shoe horn, content production specialist, or leg lead javascript developer to assist with ADLs. She is able to feed herself with right hand, but requires assistance with set up of food . As far as her movement in LUE, it is significantly limited. She is unable to
== END 2020-10-24 12:55 | disposition home or self-care (01) ==
LOC: OT 12:49
PROVIDERS: PCP Internal Medicine Adolescent Medicine; Visit Provider Internal Medicine Adolescent Medicine
DX: R53.1 Weakness (principal)
CPT/HCPCS: 97166

== ENCOUNTER 2020-10-24 13:00 | Outpatient (RCR) | payer MEDICAID, SELFPAY ==
--- NOTE | 2020-09-12 10:58 | HMH.SLAPHASI ---
Speech & Language Evaluation Speech/Language Aphasia Evaluation Start: 09/12/20 10:14 Freq: once Status: Complete Protocol: Document 09/12/20 10:14 DOMENICO (Rec: 09/12/20 10:44 DOMENICO [id number]) Aphasia Assessment/Goals/Plan Assessment Date of Evaluation: 09/12/20 Evaluation Type Initial Certification Assessment/Problems Patient had a stroke on 10/28/19 and presents with difficulty with language and cognitive skills. MBSS completed today revealed no therapy was warranted for swallowing. Does Patient Qualify for Service Yes Qualify/Failure Comment Based on the results of today' s evaluation, Mary qualifies for speech therapy services to target her language and cognitive skills. Plan Pt will be seen # times/week 2 for # weeks 12 Anticipate reaching STG in # weeks 8 Anticipate reaching LTG in # weeks 12 Pt/Guardian verbally ack understanding Yes of dx/prognosis/goals Pt/Guardian verbally ack understanding Yes of/consent to tx prog G -code Required No STG-Auditory Comprehension Paragraph Level 80 STG-Reading Comprehension Reading Sentences & Ans Questions 80 Reading Paragraphs & Ans Questions 80 STG-Verbal Expressive Language Automatic Speech 90 STG-Written Language Signature 80 Write Complete Sentence 80 STG-Attending/Orientation/Memory Orientation 90 Delayed Recall 90 Attention/Concentration 90 Memory Recall 90 STG-Comparative/Linguistic Skills Thought Organization 80 Categorization Ability 80 Sequence Events in Correct Order 80 STG-Divergent Thinking Deductive Reasoning 80 Inductive Reasoning 80 Group Home Goals Increase auditory comprehension skills Yes to communicate w/family & friends Increase verbal expression skills to Yes communicate w/family & friends. Increase cognitive skills to communicate Yes w/family & friends Education Instructions provided HEP will be provided to Mary following first treatment session. Pt/Caregiver Able to Recall Information Able to recall/restate Speech & Language HPI History Present Illness Description of Patient Problem Stroke Symptom Onset Date 10/28/19 Rehab Services Assessed Speech therapy Vision Comment Patient reports visual neglect on the left side and b
== END 2020-10-24 13:05 | disposition home or self-care (01) ==
LOC: ST 13:00
PROVIDERS: PCP Internal Medicine Adolescent Medicine; Visit Provider Specialist
DX: I63.9 Cerebral infarction, unspecified (principal)
CPT/HCPCS: 92523; 97129; 97130

== ENCOUNTER 2020-10-24 15:00 | Outpatient (RCR) | payer MEDICAID, SELFPAY ==
--- NOTE | 2020-10-15 15:26 | HMH.PTOPEV ---
PT Outpatient Evaluation Rehab PT Outpatient Evaluation Start: 10/15/20 13:49 Freq: Status: Active Protocol: Document 10/15/20 15:02 KYUNG (Rec: 10/15/20 15:26 PHOBRIAN [id number]) Electronically Signed By Fran Caal, PT 10/15/20 15:02 Outpatient Therapy Subjective History Subjective History Pt is 60 yowf who presents with c/o pain in low back B, R worse than L, x ~ 1 mo with insdious onset. She reports pain is fairly constant and sharp/stabbing in nature. She has significant mobility decline due to prior CVA with L UE and LE flaciddity. She spends most of her day in wheelchair which is her primary source of mobility. CT scan of abdomen/pelvis was negative for pathology. Chief Complaint Pain,Stiff Symptom Type Sharp,Stabbing Symptoms Relieved By Nothing Symptoms Aggravated By Sitting,Standing,Twisting, Walking Prior Functional Limitations Standing,Walking Current Functional Limitations Sleeping,Standing,Sitting, Recreation Activity,Walking Symptom Description Constant and Continuous Level of pain today (0-10) 8 Pain scale - at its worst (0-10) 10 Lumbopelvic Eval Assistive device Assistive Devices Wheelchair Palapation tenderness bilateral Lumbar/Sacral Palpation Findings Tenderness Lumbar/Sacral Palpation Overall Comment B SI jt Manual Muscle Test Right Knee Extension Strength Grade 5 Normal Knee Flexion Strength Grade 5 Normal Hip Flexion Strength Grade 5 Normal Hip Abduction Strength Grade 5 Normal Hip Adduction Strength Grade 5 Normal Ankle Dorsiflexion Strength Grade 5 Normal Gastronemius/Soleus Strength Grade 5 Normal Special Tests Hip Tod (ELIAN) Test Negative Left,Positive Right Sciatic Nerve Tension Test Negative Left,Positive Right Unilateral Straight Leg Raise (Lasegue) Negative Left,Negative Right Test Lumbar Long Protection Distraction Test/Manual Negative Traction Outpatient Therapy Assessment Impairments Problems/Impairmments Impaired Strength,Impaired Endurance,Impaired Transfers, Impaired Gait Pattern,Impaired Walking,Impaired Standing, Impaired Sitting,Subjective C/ O Pain,Impaired Self Care/Self
== END 2020-10-24 15:05 | disposition home or self-care (01) ==
LOC: PT 15:00
PROVIDERS: PCP Internal Medicine Adolescent Medicine; Visit Provider Internal Medicine Adolescent Medicine
DX: M54.5 Low back pain (principal)
CPT/HCPCS: 97010; 97014; 97110; 97140; 97163; G0283

== ENCOUNTER → 2021-02-05 15:11 | Outpatient (CLI) | payer MEDICAID, SELFPAY ==
--- NOTE | 2021-02-05 15:14 | XR_ITS ---
PROCEDURE: XR SHOULDER LT MIN 2V CLINICAL INDICATION: LT shoulder COMPARISON: CT CT ABDOMEN PELVIS WO CON from 09/28/2020 FINDINGS: No fracture or dislocation. No lytic or blastic change. There is normal mineralization. There are mild osteoarthritic changes of the glenohumeral joint with the low lying humeral head. On the axillary view, there is prominent trabeculation of the proximal humerus versus multiple small lucencies which could be seen with multiple myeloma. Please correlate with clinical parameters. IMPRESSION: Osteoarthritic change with low lying humeral head. Prominent lucencies of the proximal to mid humeral shaft. This could be seen with osteoporosis versus multiple myeloma. Dictated by: Yoav Thomas MD 02/05/2021 16:57 Yoav Thomas MD in [place] 02/05/2021 16:57
== END ==
PROVIDERS: PCP Internal Medicine Adolescent Medicine; Visit Provider Orthopaedic Surgery
DX: M25.512 Pain in left shoulder (principal)
CPT/HCPCS: 73030

== ENCOUNTER → 2021-07-08 13:47 | Outpatient (CLI) | payer MEDICAID, SELFPAY ==
[2021-07-08 14:48] LABS: Alanine Aminotransferase 36 U/L (12-78); Albumin Level 4.2 g/dl (3.5-5.0); Albumin/Globulin Ratio 1.6 (1.1-1.8); Alkaline Phosphatase 119 U/L (38-126); Anion Gap 13.3 mEq/L (5-15); Aspartate Amino Transferase 26 U/L (14-36); Bilirubin,Total 0.3 mg/dl (0.2-1.3); Blood Urea Nitrogen 12 mg/dl (7-17); Calcium 9.8 mg/dl (8.4-10.2); Carbon Dioxide 27 mmol/L (22.0-30.0); Chloride 103 mmol/L (98-107); Cholesterol 132 mg/dl (140-200); Estimated Glomerular Filt Rate 57 ml/min (>60); GFR (African American) 68 ML/MIN (>60); Globulin 2.6 g/dL (1.3-3.2); Glucose 157 mg/dl (74-100); HDL Cholesterol 44 mg/dl (40-60); Potassium 4.3 mmoL/L (3.5-5.1); Sodium 139 mmol/L (136-145); Total Protein,Serum 6.8 g/dl (6.3-8.2); Triglycerides 131 mg/dl (30-150); VLDL Cholesterol 26 mg/dL (0-40)
[2021-07-08 15:00] LABS: Direct LDL Cholesterol 63.94 mg/dL (100-129)
[2021-07-08 15:31] LABS: Hemoglobin A1C 6.1 % (4.0-6.0)
== END ==
PROVIDERS: Visit Provider Internal Medicine Adolescent Medicine
DX: E11.9 Type 2 diabetes mellitus without complications (principal); I10 Essential (primary) hypertension; E78.2 Mixed hyperlipidemia; Z79.84 Long term (current) use of oral hypoglycemic drugs
CPT/HCPCS: 36415; 80053; 80061; 83036

== ENCOUNTER → 2021-08-20 13:28 | Outpatient (CLI) | payer MEDICAID, SELFPAY ==
--- NOTE | 2021-08-20 13:32 | XR_ITS ---
FINAL REPORT CLINICAL HISTORY: shoulder pain FINDINGS: LEFT SHOULDER Three views were obtained. There is no acute fracture or dislocation. There is mild AC joint degenerative change. No soft tissue abnormality is identified. IMPRESSION: Mild AC joint degenerative change. Reviewed, Interpreted and Dictated by Marty Quintana III, MD Transcribed by Sneha Carter Authenticated and [facility]
== END ==
PROVIDERS: PCP Internal Medicine Adolescent Medicine; Visit Provider Orthopaedic Surgery
DX: M25.512 Pain in left shoulder (principal); G89.29 Other chronic pain
CPT/HCPCS: 73030

== ENCOUNTER → 2022-03-07 10:46 | Outpatient (CLI) | payer MEDICAID, SELFPAY ==
--- NOTE | 2022-03-07 12:44 | MM_ITS ---
PROCEDURE INFORMATION: Exam: US Right Breast, Complete MG Bilateral Diagnostic Breast Tomosynthesis Exam date and time: 03/07/2022 3:39 PM Age: 61 years old Clinical indication: Due for annual screening mammography. Apparently, the patient has diminished mobility due to a stroke and therefore right breast ultrasound was performed upon initial review by the technologists. There was suspected suspicious finding within the right upper outer breast. Mammogram was then converted to diagnostic TECHNIQUE: Imaging protocol: Complete ultrasound of all four quadrants of the Right breast and the retroareolar regions, including ultrasound of the axilla when performed. Bilateral Diagnostic tomosynthesis and 2D mammography including computer-aided detection (CAD) when performed. Unilateral or bilateral exam. Limited assessment due to difficulty positioning the patient. COMPARISON: 1. Mammogram 01/10/20, 01/14/2019, 08/12/2011 2. Ultrasound 01/31/2020, 01/10/2020, 02/08/2019 FINDINGS: MAMMOGRAPHY: The breast is heterogeneously dense, which may obscure small masses. In the upper outer posterior right breast, about 11 cm from the nipple, there is a 1.5 cm irregular somewhat spiculated suspicious mass There are innumerable tiny subcentimeter benign-appearing subcentimeter nodules are present in the bilateral breast. No suspicious findings are present within the left breast. No suspicious calcifications No axillary adenopathy ULTRASOUND: Ultrasound assessment of the right breast was performed. In the right 10 o'clock 5 cm from the nipple there is a 1.2 x 1.0 x 0.8 cm suspicious irregular mass. Of note, suspicious mammographic finding in the upper outer quadrant is located approximately 11 cm from the nipple There are innumerable subcentimeter simple and complicated cysts throughout the breast. IMPRESSION: Ultrasound-guided biopsy is recommended to definitively characterize a mass which is identified as 10 o'clock 5 cm from the right nipple sonographically. Please note that a suspicious mammographic mass in the upper outer quadrant is located about 11 cm from the nipple. As such, placement of a biopsy marker with postprocedure mammogram is warranted to assure appropriate sampling location I discussed these findings and recommendations with the technologist Marcie Petty at time of interpretation ASSESSMENT: BI-RADS category 5: Highly suggestive of malignancy
== END ==
PROVIDERS: PCP Internal Medicine Adolescent Medicine; Visit Provider Nurse Practitioner Family
DX: R92.8 Other abnormal and inconclusive findings on diagnostic imaging of breast (principal); N63.11 Unspecified lump in the right breast, upper outer quadrant
CPT/HCPCS: 76641; 77062; 77063; 77066; 77067; G0279

== ENCOUNTER → 2022-03-13 13:21 | Outpatient (CLI) | payer MEDICAID, SELFPAY ==
--- NOTE | 2022-03-13 13:22 | MR_ITS ---
FINAL REPORT TECHNIQUE: Imaging of the intracerebral vasculature was obtained without intravenous contrast using [id number] imaging. CLINICAL HISTORY: Glossopharyngeal neuralgia. Left sided neck pain that radiates up right side of head. headache. FINDINGS: Flow related signal intensity within the intracerebral vasculature is preserved. There is no evidence of aneurysm, significant stenosis or AVM. 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 IMPRESSION: Unremarkable MR angiogram of the brain without contrast. Reviewed, Interpreted and Dictated by Emilie Lagos MD Transcribed by Sneha Carter Authenticated and [facility]
--- NOTE | 2022-03-13 13:22 | MR_ITS ---
FINAL REPORT TECHNIQUE: Multiple projection images of the neck arterial vasculature were obtained without contrast. The raw data images were reviewed. CLINICAL HISTORY: Glossopharyngeal neuralgia.. Left sided neck pain that radiates up right side of head. headache. FINDINGS: The right common carotid artery has an unremarkable appearance without evidence of stenosis or occlusion. The right internal carotid artery has an unremarkable appearance without evidence of stenosis or occlusion. The right external carotid artery is patent. The right vertebral artery is patent without evidence of stenosis. The left common carotid artery has an unremarkable appearance without evidence of stenosis or occlusion. The left internal carotid artery is patent without evidence of stenosis or occlusion. The left external carotid artery is patent. The left vertebral artery is patent without evidence of stenosis. The left vertebral artery is dominant. IMPRESSION: Unremarkable MR angiogram of the neck without evidence of stenosis or occlusion. Reviewed, Interpreted and Dictated by Emilie Lagos MD Transcribed by Sneha Carter Authenticated and [facility]
[2022-03-13 15:31] VITALS: BMI 42.2
== END ==
PROVIDERS: PCP Internal Medicine Adolescent Medicine; Visit Provider Specialist
DX: G52.1 Disorders of glossopharyngeal nerve (principal)
CPT/HCPCS: 70544; 70547; 97802

== ENCOUNTER 2022-03-24 13:00 | Outpatient (RCR) | payer MEDICAID, SELFPAY ==
--- NOTE | 2021-11-13 15:32 | HMH.PTOPEV ---
PT Outpatient Evaluation Rehab PT Outpatient Evaluation Start: 11/13/21 12:50 Freq: Status: Active Protocol: Document 11/13/21 12:55 EBENEZERMATTY (Rec: 11/13/21 15:32 PIPO [id number]) E-signed By Gely Mata, PT Outpatient Therapy Subjective History Subjective History Pt is a 61 y/o female that reports she suffered a stroke affecting the left side on 10/27, ~ 2 years ago. Pt reports she initially went to for medical intervention then went to [facility] for 3 weeks of PT/OT/Speech and then had outpatient PT at [facility] as well. Pt reports her legs were stronger and she could walk better after PT but has declined since. Pt reports she is able to walk very short distances with a richard-walker and mod-max assistance from her and her goal for PT is to improve with this. Pt reports she fell last week trying to walk due to her leg giving out on her, denies injuries from the fall. Pt's states prior she used a brace that connected from her hip to her ankle but he recently took the top part off and is just using the ankle attachment to keep her foot from rolling in. Pt reports she is able to stand for awhile and does this for exercise at her sink/porch multiple times a day. Pt reports she also helps extend her left knee with assistance from the right leg to keep it moving. Pt reports she lives in a two story home but her built her a suite on the first level with a walk in shower. Pt reports her helps her with all activities such as dressing, bathing, and toileting. Pt states she often has pain in
--- NOTE | 2021-12-11 15:35 | HMH.RHREAS ---
Rehab Reassessment Rehab OP Re-assessment Start: 12/11/21 13:40 Freq: Status: Active Protocol: Document 12/11/21 13:41 EBENEZERMATTY (Rec: 12/11/21 15:34 PIPO [id number]) E-signed By Gely Mata PT Rehab Re-assessment Subjective Subjective Pt reports she feels like she is getting stronger overall and has been practicing walking with her hemiwalker at home with assistance from her . Pt reports she is compliant with her HEP as well . Pt reports pain at worse continues to be 8-9/10 for the LLE. Objective Objective Notes LLE strength: 3/5 grossly Gait: ability to ambulate ~20- 25 ft with hemiwalker and minAx1 on left side for LLE placement and occasional cues for sequencing and walker safety Assessment Progress Assessment Progressing as Expected Assessment Notes Pt has attended 7 PT visits consisting of aerobic exercises, weight shifting, standing balance, gait training and LE stretching/ strengthening with good tolerance. Pt demonstrates ability to transfer to/from level surfaces with CGA and ability to walk ~20-35 ft with hemiwalker and minAx1 with LLE placement. Pt would continue to benefit from skilled PT to further improve strength, balance/ proprioception, and gait to improve overall QOL and decrease burden of caregivers. Patient goals met ST/6 Goals Not Met LTG, strength Revised Goals n/a Plan Plan Continue initial POC Frequency of Therapy 2x/week Duration of therapy 4-6 weeks Time and Billing Re-Eval Time 8 Re-Eval Billing Units 1 PHYSICIAN CERTIFICATION: I certify the specified therapy services for Mary Rhoades are required, authorized, and reviewed every 30 days.
--- NOTE | 2022-02-24 15:28 | HMH.RHREAS ---
Rehab Reassessment Rehab OP Re-assessment Start: 12/11/21 13:40 Freq: Status: Active Protocol: Document 02/24/22 15:00 EBENEZERMATTY (Rec: 02/24/22 15:27 PIPO [id number]) E-signed By Gely Mata PT Rehab Re-assessment Subjective Subjective Pt reports no new complaints since last PT treatment session 26 days ago. Pt reports she has been passively moving the left leg and arm with the right extremity, but has not been compliant with HEP such as sit to stands or attempting walking with walker & assistance from at home. Objective Objective Notes Transfers: sit/stand and sit/ stand/pivot CGA, minAx1 required toward end of session due to fatigue Gait: 50ft with CGA-minAx1 , 1 LOB due to LLE placement requiring modAx1 on left side at the end of the session Continued LUE/LLE spasticity noted with flexor tone Assessment Progress Assessment Progressing as Expected Assessment Notes Pt has attended 18 PT/OT cotreatment visits consisting of aerobic exercises, weight shifting, standing/seated balance, gait training and LE stretching/strengthening with good tolerance. Pt missed ~3 weeks of treatment sessions over the holiday with slight regression with overall endurance this date requiring bouts of minAx1 for transfers, balance and gait. Importance of HEP compliance was reiterated to maintain progress and limit further functional decline. Pt would continue to benefit from skilled PT to further improve strength, balance/ proprioception, and gait to improve overall QOL and decrease burden of caregivers. Patient goals met LT/8 Goals Not Met
--- NOTE | 2022-03-24 15:03 | HMH.RHREAS ---
Rehab Reassessment Rehab OP Re-assessment Start: 12/11/21 13:40 Freq: Status: Active Protocol: Document 03/24/22 12:56 PIPO (Rec: 03/24/22 15:01 PIPO [id number]) E-signed By Gely Mata PT Rehab Re-assessment Subjective Subjective Pt reports she has been walking more at home. Pt reports she has not been performing sit to stands at home as instructed. Pt reports she continues to rely on her (caregiver) for most activities including dressing, bathing, and transfers. Objective Objective Notes Gait: 40-50 ft CGA with hemiwalker and verbal cues for sequencing Transfer: sit<>Stand transfer on uneven surfaces CGA with assistance required for proper set up, able to perform sit<> supine transfer with SBA but requied modA for supine<>sit transfer to the right side. Assessment Progress Assessment Progressing as Expected Assessment Notes Pt continues to demonstrate improvement with gait and transfer ability requiring only CGA from therapist if not fatigued. Pt has tolerated 2 hours of therapy with PT and OT session back to back well demonstrating improved overall endurance. Pt and caregiver were educated on realistic rehabilitation expectations given state/time of condition and reiterated importance of HEP compliance to maintain progress and assist with pt independence. Patient goals met LT/8 Goals Not Met lower body dressing, gait distance, HEP compliance Revised Goals decrease gait goal to 60 ft versus 100ft Plan Plan Continue initial POC, discussed transition to independent HEP to maintain progress Frequency of Therapy 2x/week Duration of therapy
== END 2022-06-09 14:52 | disposition home or self-care (01) ==
LOC: PT 13:00
PROVIDERS: PCP Internal Medicine Adolescent Medicine; Visit Provider Internal Medicine Adolescent Medicine
DX: I69.354 Hemiplegia and hemiparesis following cerebral infarction affecting left non-dominant side (principal)
CPT/HCPCS: 97010; 97110; 97112; 97116; 97140; 97163; 97164; 97530

== ENCOUNTER 2022-03-24 14:00 | Outpatient (RCR) | payer MEDICAID, SELFPAY ==
--- NOTE | 2021-11-13 14:42 | HMH.OTOPEV ---
OT Inpatient Evaluation Rehab OT Outpatient Eval Start: 11/13/21 14:17 Freq: Status: Active Protocol: Document 11/13/21 14:17 [facility] (Rec: 11/13/21 14:41 [facility] [id number]) E-signed By Julián Moreira, OT Outpatient Therapy Subjective History Subjective History Pt is a 61 year old female who reports to therapy for initial evaluation to L UE and ADL function. Pt originally had a CVA on 10/28/19; ~2 years ago. Following her stroke [facility]. She returned home and received home health before starting outpatient services at [facility]. Pt was seen by PT and then sent for an evaluation for OT. OT evaluation was completed, but patient did not return after evaluation. As of today, she continues to live at home with her . He is her main caregiver and provides assistance at home. She is still unable to transfer from surface to surface without mod/max assistance. Normally, she is in her wheelchair out in community and at home. reports she can walk with assistance and rolling walker, but very short distances. Her completes 75% ofalll dressing and bathing tasks. She is able to take her shirt off over her head independent, but unable to complete anything other dressing. She uses her RUE in the bath to wash her upper body, but he completes lower body. She can feed herself independently after set up of food. Pt's AROM and strength in R UE remain significantly limited. She is unable to make a fist with her hand, flex/ext her wrist, or actively move the shoulder
--- NOTE | 2021-12-12 08:31 | HMH.RHREAS ---
Rehab Reassessment Rehab OP Re-assessment Start: 12/11/21 15:58 Freq: Status: Active Protocol: Document 12/11/21 04:00 JONNIE (Rec: 12/12/21 08:31 JONNIE [id number]) E-signed By Julián Moreira OT Rehab Re-assessment Subjective Subjective I am trying to get stronger. Objective Objective Notes Pt continues to be seen twice a week in order to address LUE deficits, strengthening, transfers, and ADL independence. Assessment Progress Assessment Slower Than Expected Assessment Notes Pt very consistent about attending therapy sessions. She has not missed an appointment since beginning therapy. She is very determined about regaining some independence. Pt and report they have been practicing ADL activities at home and he has pushed her to become more independent with these daily tasks. He encourages her to do them on her own as much as possible. As of now, pt is completing sit to stands from her chair with cga. She is also transferring from surface to surface with min assist. She is also using a hemiwalker and ambulating ~20 feet with min assist from PT. She is able to doff and done upper body with minimal assistance and moderate verbal cues. Therapist plans to continue addressing all other ADL activities written in her goals. Patient goals met STG 1. Pt will be able to complete sit to stand with moderate assistance ~50% of the tmie 2. Pt will be able to transfer from surface to surface (sit to stand/step) with moderate assistance ~50% of the time. 4. Pt will be able to
--- NOTE | 2022-01-06 15:02 | HMH.RHREAS ---
Rehab Reassessment Rehab OP Re-assessment Start: 12/11/21 15:58 Freq: Status: Active Protocol: Document 01/06/22 14:49 RMTYRESEHALL (Rec: 01/06/22 15:01 RMARSHALL [id number]) E-signed By Julián Moreira OT Rehab Re-assessment Subjective Subjective I am trying to do my best. Objective Objective Notes Pt continues to be seen twice a week in order to address LUE deficits, strengthening, transfers, and ADL independence. Assessment Progress Assessment Slower Than Expected Assessment Notes Pt remains consistent about attending therapy sessions. Pt and continue to report continued completion of all therapy activities at home. As of now, pt is completing sit to stands from her chair with sba. She is also transferring from surface to surface with cga/min assist. She is also using a hemiwalker and ambulating ~60 feet with min assist from PT. She is able to doff and done upper body with minimal assistance and min verabal cueing. Pt demonstrates most difficulty with using a sock aid due to only being able to use one hand. Therapist plans to retrieve a soft sock aid instead of the hard plastic to improve pt's ability to put on the sock over the aid. Patient goals met STG 1. Pt will be able to complete sit to stand with moderate assistance ~50% of the tmie 2. Pt will be able to transfer from surface to surface (sit to stand/step) with moderate assistance ~50% of the time. 4. Pt will be able to complete upper body dressing with moderate assistance ~50% of the time. 6. Pt will tolerate ~10 minut
--- NOTE | 2022-02-24 16:08 | HMH.RHREAS ---
Rehab Reassessment Rehab OP Re-assessment Start: 12/11/21 15:58 Freq: Status: Active Protocol: Document 02/24/22 14:04 JONNIE (Rec: 02/24/22 16:07 RMZEINAL [id number]) E-signed By Julián Moreira OT Rehab Re-assessment Subjective Subjective I know I need to do more at home. Objective Objective Notes Pt continues to be seen twice a week in order to address LUE deficits, strengthening, transfers, and ADL independence. Assessment Progress Assessment Slower Than Expected Assessment Notes Pt has not been seen for 25 days due to holiday traveling. Pt reports she has not bee completing therapy exercises or activities at home. As of today, pt was requiring cga to complete sit to stands.. She is stil transferring from surface to surface with cga/ min assist. She was able to ambulate ~45 feet with min assist from PT and OT. She reports she has not been completing much dressing on her own at home with upper or lower body dressing. Transfers and ADL's remain the same, but since she has missed some therapy sessions she does not demonstrates improvement. Patient goals met STG 1. Pt will be able to complete sit to stand with moderate assistance ~50% of the tmie 2. Pt will be able to transfer from surface to surface (sit to stand/step) with moderate assistance ~50% of the time. 4. Pt will be able to complete upper body dressing with moderate assistance ~50% of the time. 6. Pt will tolerate ~10 minutes of PROM to all joints in LUE to improve active assistive range of motion for
== END 2022-03-24 14:05 | disposition home or self-care (01) ==
LOC: OT 14:00
PROVIDERS: PCP Internal Medicine Adolescent Medicine; Visit Provider Internal Medicine Adolescent Medicine
DX: I69.354 Hemiplegia and hemiparesis following cerebral infarction affecting left non-dominant side (principal)
CPT/HCPCS: 97110; 97140; 97164; 97166; 97530; 97535

== ENCOUNTER → 2022-04-16 09:19 | Outpatient (CLI) | payer MEDICAID, SELFPAY ==
--- NOTE | 2022-04-16 09:34 | US_ITS ---
FINAL REPORT CLINICAL HISTORY: rt jazlyn nodul-- core bx-- dr prince FINDINGS: ULTRASOUND-GUIDED RIGHT BREAST CORE BIOPSY TECHNIQUE: Limited images were obtained to localize region of interest. The right breast was prepped in a routine sterile fashion and locally anesthetized with 1% lidocaine. Standard written informed consent was obtained. The biopsy needle was positioned within the outer periphery of the lesion. A total of 3 passes were made with a 16 gauge core biopsy needle. A biopsy marker clip was deployed in satisfactory position. No mammogram was performed due to patient's condition and clear visualization of the biopsy marker clip within the lesion under sonographic visualization. Procedure was well tolerated . CONCLUSION: 1. Technically successful ultrasound guided core biopsy of right breast lesion as above. 2. Biopsy marker clip deployed Histopathology results reveal invasive ductal carcinoma, concordant with imaging findings. Medical and surgical oncologic referral recommended for treatment. Authenticated and [facility]
== END ==
PROVIDERS: PCP Internal Medicine Adolescent Medicine; Visit Provider Internal Medicine Adolescent Medicine
DX: R92.8 Other abnormal and inconclusive findings on diagnostic imaging of breast (principal)
CPT/HCPCS: 19083

== ENCOUNTER 2023-04-23 12:23 | Outpatient (CLI) | payer MEDICARE, SELFPAY ==
--- NOTE | 2023-04-23 12:28 | XR_ITS ---
FINAL REPORT CLINICAL HISTORY: RT SHOULDER PAIN FINDINGS: Four views of the right shoulder were obtained. There is no prior exam for comparison. There is no fracture or dislocation. There are postoperative changes from ORIF of the distal humerus. There is mild degenerative joint disease. Soft tissues are normal. IMPRESSION: No acute osseous abnormality of the right shoulder. Reviewed, Interpreted and Dictated by Emilie Lagos MD Transcribed by Sneha Carter Authenticated and [facility]
== END 2023-04-23 23:59 ==
PROVIDERS: PCP Nurse Practitioner Family; Visit Provider Nurse Practitioner Family
DX: M25.511 Pain in right shoulder (principal)
CPT/HCPCS: 73030

== ENCOUNTER 2024-06-06 09:37 | Outpatient (CLI) | payer MEDICARE, MEDICAID, SELFPAY ==
--- OUTSIDE RECORDS SUMMARY | 2024-06-06 09:39 | XMS_ITS | Data Portability ---
Author Organization [facility] HEM/ON[facility] [place] [facility] Address [address] [place] [address] Care Team Providers Care Carboy Filler Name Role Phone CASSIE VICTOR Primary Care Provider Assessment Encounter Date Assessment Date Assessment LastModified by Organization Details LastModified Time 05/02/2022 05/02/2022 This is a 61-year-old female with a left breast cancer. We do not have the specific mammograms or ultrasounds from the outside unfortunately today, but we do have the biopsy showing an ER positive cancer, apparently they biopsied and clipped this area. It is an ER positive disease. At this point, I had a lengthy discussion with the patient and the patient's . Given her hemiparesis, standard treatment would be partial. If this is an early stage disease, partial mastectomy, and radiation due to her hemiparesis, I am uncertain as how well that she could tolerate it moving in and out of the radiation machine and how well that she can function moving forward with that and so, certainly she will discuss that with surgery as well. I think they are in kind of favor of moving forward with the mastectomy. She also likely need removal of sentinel nodes given the fact that she is only age 61. She will at a minimum will require adjuvant hormonal manipulation, but we do not have 3 staging at this point, and it is hard to gauge that based on the lack of information with regard to the mammogram and size on ultrasound, but we will obtain all this information and make referral to the surgery at the [facility] at . Given the complexity of her case, we will try to get all the information as quickly as possible and is completely as possible as we can. [email or web address] Not available 05/02/2022 22:18:41 Plan of Treatment Reminders Order Date Submit Date Provider Last Modified By Organization Details Last Modified Time Details Appointments None record ed. Lab None record ed. Referral None record ed. Procedures None record ed. Surgeries None record ed. Imaging None record ed. Medication Orders None record ed. Patient TargetsNo targets recorded. Patient InstructionsNo instructions recorded. Reason for Referral None Reported. Results Created Date Observation Date Name Description Value Unit Range Abnormal Flag Note LastModifiedBy Organization Detail LastModifiedTime Result Notes None recorded. Problems Name Problem SNOMED Code Status Onset Date Resolution Date Notes Provider Name and Address Organization Details Recorded Time Primary malignant neoplasm of female breast 12624545 Active 023 HELEN FAJARDO MD [address] [place] [address], [id number] , [facility] 3 09:54:53 Problem Notes None recorded. Procedures Surgical History Date Name Laterality Status Provider Name and Address Organization Details Recorded Time cholecystectomy completed Irina [facility] 05/02/2022 09:38:02 hysterectomy completed Irina Browning [facility] 05/02/2022 09:38:09 Imaging Results None recorded. Procedure Notes None recorded. Medical Equipment None Reported. Allergies Allergen ID Allergen Name Allergen Category Reaction Reaction Severity Criticality Documentation Date Start Date Code Code System Note Provider Name and Address Organization Details Recorded Time 032417 Product containin g penicilli n (product) medicatio n Not available Not available Not available 05/02/2022 18638 8001 SNOMED Irina Browning [facility] 3 09:35:55 Medications Name Sig Start Date Stop Date Status Note LastModified by Organization Details LastModified Time atorvastatin 40 mg tablet Take 1 tablet every day by oral route. active Not Available Not Available No t Available metformin 500 mg tablet Take 1 tablet twice a day by oral route. active Not Available Not Available No t Available gabapentin 600 mg tablet Take 1 tablet 3 times a day by oral route. active Not Available Not Available No t Available tizanidine 4 mg tablet Take 1 tablet every 6 hours by oral route. active Not Available Not Available No t Available hydralazine 25 mg tablet Take 1 tablet twice a day by oral route. active Not Available Not Available No t Available aspirin 81 mg tablet,delayed release Take 1 tablet every day by oral route. active Not Available Not Available No t Available amlodipine 10 mg tablet Take 1 tablet every day by oral route. active Not Available Not Available No t Available trazodone 150 mg tablet Take 1 tablet twice a day by oral route. active Not Available Not Available No t Available fluoxetine 20 mg tablet Take 1 tablet every day by oral route. active Not Available Not Available No t Available lisinopril 40 mg tablet Take 1 tablet every day by oral route. active Not Available Not Available No t Available Dulcolax Stool Softener (docusate) 100 mg capsule Take 1 capsule every day by oral route. active Not Available Not Available No t Available duloxetine 30 mg capsule,delaye d release Take 1 capsule every day by oral route. active Not Available Not Available No t Available Vitals Date Recorded Body weight Body mass index (BMI) Body height Body temperature Heart rate Oxygen saturation Oxygen saturation in Arterial blood by Pulse oximetry Systolic blood pressure Diastolic blood pressure Provider Name and Address Organization Details Last Updated DateTime 3 15833.7 9 g 36.3 kg/m2 162.56 cm 99.1 [degF] 83 /min 92 % 92 % 145 mm[Hg] 84 mm[Hg] Irina [facility] 09:39:34 Social History Question Answer Notes LastModified by [employer] ion Details LastModified Time Tobacco Smoking Status Former Smoker 30+ years ago Irina [facility] [place] 05/02/2022 09:37:16 What Is Your Level Of Alcohol Consumption? None [email or web address] Information not available 05/02/2022 When Did You Quit Smoking? 16+yearssin celastcigar ette [email or web address] Information not available 05/02/2022 What Was The Date Of Your Most Recent Tobacco Screening? 05/02/2022 [email or web address] Information not available 05/02/2022 How Many Children Do You Have? 3 [email or web address] Information not available 05/02/2022 What Is Your Relationship Status? [email or web address] Information not available 05/02/2022 Do You Use Any Illicit Or Recreational Drugs? No [email or web address] Information not available 05/02/2022 Do You Or Have You Ever Used Any Other Forms Of Tobacco Or Nicotine? No [email or web address] Information not available 05/02/2022 Sex: Unknown Functional Status None recorded. Mental Status None recorded. Family History Relationship Description Onset Age of this Age Resolved Age Notes LastModified by Organization Details LastModified Time Mother Diabetes mellitus [email or web address] Not available 05/02 09:36:06 Father Hypertensive disorder [id number] Not available 05/02 09:36:21 Sister Myocardial infarction [email or web address] Not available 04/23 09:36:43 Sister Myocardial infarction [email or web address] Not available 04/23 09:36:43 Medical History Condition Response Diabetes Y Stroke Y Hypertension Y Depression Y Breast Cancer Y Gynecological HistoryNo gynecological history recorded. Obstetrics History GPAL:G 0 P 0 0 0 0 Past Encounters Encounter ID Performer Location Encounter Start Date Encounter Closed Date Diagnosis/Indication Diagnosis SNOMED-CT Code Diagnosis ICD10 Code Diagnosis Note [id number] HELEN FAJARDO MD [facility] [address] [place] [address] 05/02/2022 09:12:05 05/02/2022 10:17:51 Primary malignant neoplasm of female breast 38102821 C50.919 Health Concerns Section Related Observation LastModified by Organization Detai ls LastModified Time None Recorded Concern Status LastModified by Organization Details LastModified Time None Recorded Advance Directives Directive None Recorded Payers Encounter Date Sequence Insurance Name Policy Number Policy Palmer Covered Member ID Palmer Member ID Guarantor Name 05/02/2022 1 [place] [employer] [place] [employer] - FFS/TRADITIO NAL Mary Rhoades [id number] Mary Rhoades Notes Date Note Type Note Provider Name and Address Organization Details Recorded Time 05/02/2022 text/html HPIReported bypatient.Discharge discharge disposition stable Practical Problemsno practical problems Family Problemsno family problems Emotional Problemsno emotional problems Physical Problemsno physical problems The patient is a 61-year-old female seen by me today. Unfortunately, we have limited data. She apparently has had an abnormal mammogram at [facility] in [place]. She had a biopsy done on the right breast showing an invasive ductal breast cancer. It is a [place] grade 2 disease. The estrogen receptor was 90%, progesterone receptor 90%, and HER-2/dalton was negative at 1+. Further complicating the issue, the patient has a prior history of a stroke dating back several years and unfortunately has a left-sided hemiparesis. She is in wheelchair today but is very pleasant in our discussion. Recent laboratory studies including CBC and CMP are largely unremarkable. HELEN FAJARDO MD [address] [place], [address], [facility] 05/06/2022 08:07:34 OBGyn Episode No OBEpisode recorded.
--- NOTE | 2024-06-06 09:41 | NM_ITS ---
FINAL REPORT TECHNIQUE: 0.51 millicuries of technetium 99m sulfur colloid was ingested with eggs, toast, and water. CLINICAL HISTORY: NAUSEA AND VOMITING 10:25AM 0.51 [facility] TC SULFUR COLLOID INJ INTO 2 WHOLE EGGS, 2 PC OF TOAST AND WATER FINDINGS: GASTRIC EMPTYING SCAN Static images show normal emptying of the stomach into the small bowel. Based on the time activity curve, the estimated half-emptying time is 89 minutes. IMPRESSION: Mild prolonged emptying could be related to gastroparesis versus outlet obstruction. Reviewed, Interpreted and Dictated by Evan Morales MD Transcribed by Yennifer Nj Authenticated and [facility]
[2024-06-06] MEDS: TC99M SULF.COLLOID;1 DOSE (UP TO 20 MCI) IV (11:01)
== END 2024-06-06 23:59 | disposition home or self-care (01) ==
LOC: RAD 09:37
PROVIDERS: PCP Nurse Practitioner Family; Visit Provider Nurse Practitioner Family
DX: R11.2 Nausea with vomiting, unspecified (principal)
CPT/HCPCS: 78264; A9541